=== PATIENT | female | born 1990 | race Caucasian/White ===

== ENCOUNTER 2017-05-01 23:38 | Emergency (ER) | payer SELFPAY ==
[~2017-05-01] VITALS: Ht 162.6 cm; Wt 64.0 kg
[~2017-05-01 23:38] MED LIST: FERR-55 PO; FOLI0.4T2 PO; PREN1TAB49 PO
[2017-05-01 23:49] VITALS: Ht 162.6 cm; Wt 64.0 kg
[2017-05-02] MEDS ORDERED: LORAZEPAM 1 MG TAB PO STA (00:02)
--- NOTE | 2017-05-02 00:37 | RADRPT ---
PROCEDURE: CHEST - 1 VIEW CLINICAL INDICATION: 26-year-old female with shortness of breath. TECHNIQUE: A single frontal AP upright portable view of the chest was performed. The images were reviewed on a PACS workstation. COMPARISON: None. FINDINGS: The cardiomediastinal silhouette has a normal appearance. There is no evidence for an infiltrate. T he pulmonary vascularity is within normal limits. There is no evidence for pneumothorax or pneumomed iastinum. The osseous structures are intact. IMPRESSION: No evidence for active cardiopulmonary disease. .Anjum Solo MD, MD Date Time Electronically viewed and signed by .Anjum Solo MD, on 05/02/2017 00:37 .M/
--- NOTE | 2017-05-02 00:56 | ERD ---
ER Documentation Chief Complaint Date/Time DATE: 05/02/17 TIME: 00:53 Chief Complaint tingling of lips, left arm , sob HPI This is a 26-year-old female with a history of asthma presenting to the emergency department complaining of tingling of the lips, numbness and tingling in bilateral arms and shortness of breath that started about 2 hours prior to being seen. Patient states that she started having shortness of breath and use her inhaler which did not give her any relief. She states that this shortness of breath was very different from her asthma symptoms. Patient states that it has gotten a little better however she still has some of the symptoms. She denies any history of anxiety. Denies any chest pain. States that she has not taken drugs ROS All systems reviewed and are negative except as per history of present illness. Medications Home Meds Reported Medications Ferrous Sulfate* (Ferrous Sulfate*) 325 Mg Tablet, 325 MG PO DAILY 11/26/12 Folic Acid* (Folic Acid*) 0.4 Mg Tablet, 0.4 MG PO DAILY 11/26/12 Vits W-Ca,Fe,Fa(<1MG) () 1 Tab Tablet, 1 TAB PO DAILY 11/26/12 Allergies Allergies: Coded Allergies: No Known Allergies (Verified Allergy, 10/13/12) PMhx/Soc Medical and Surgical Hx: pt denies Surgical Hx History of Surgery: Yes (Breast reduction) Anesthesia Reaction: No Hx Neurological Disorder: No Hx Respiratory Disorders: Yes (Asthma) Hx Cardiac Disorders: No Hx Psychiatric Problems: No Hx Miscellaneous Medical Probl: No Hx Alcohol Use: No Hx Substance Use: No Hx Tobacco Use: No Smoking Status: Never smoker Physical Exam Vitals Vital Signs Date Time Temp Pulse Resp B/P Pulse Ox O2 Delivery O2 Flow Rate FiO2 05/01/17 23:49 97.7 91 20 137/87 100 Physical Exam GENERAL: no acute distress, non-toxic appearing, sitting up in bed HENT: normocephalic/atraumatic EYES: conjunctiva is normal NECK: no noticeable or palpable swelling, no carotid bruits, no JVD CARDIOVASCULAR: RRR, good S1S2, no murmurs or gallops heard PULM: clear to auscultation, no use of accessory muscles, no crackles or wheezes. ABDOMEN: normal bowel sounds, abdomen soft and nontender EXT: no edema, cyanosis or clubbing MUSCULOSKELETAL: 5/5 strength, normal range of motion, no swollen or erythematous joints. NEURO: alert and oriented SKIN: no rashes, skin warm and dry, no erythematous areas PSYCH: normal mood and mentation, denies suicidal or homicidal ideation and thoughts Results 24 hrs Current Medications Medications (Trade) Dose Ordered Sig/Cody Route PRN Reason Start Time Stop Time Status Last Admin Dose Admin Lorazepam (Ativan) 1 mg ONCE STAT PO 05/02/17 00:02 05/02/17 00:06 DC 05/02/17 00:37 Procedures/MDM This is a 26-year-old female with history of asthma presenting to the emergency department complaining of tingling of the lips, shortness of breath and numbness and tingling in her arms for the past couple hours which is likely due to an anxiety attack. Patient appeared well, she had lungs are clear to auscultation bilaterally. Her pulse ox is 100%. There was no evidence of asthma exacerbation, pneumonia, ACS. Patient has normal neurological exam. An EKG was done in the ED did not show any evidence of STEMI. Chest x-ray did not show any evidence of infiltrates pneumothorax or pleural effusion. Patient was given Ativan in the ED and her symptoms have resolved. Patient stable to be discharged home to follow-up with primary care physician. Discussed return to the ER for any worsening symptoms patient understands and agrees with the plan. EKG: read and signed off by myself and Rate/Rhythm: [Normal Sinus Rhythm 80 bpm] QRS, ST, T-waves: [No changes consistent w/ acute ischemia] Impression: [No evidence of ischemia or arrhythmia] Departure Diagnosis: Primary Impression: Numbness and tingling sensation of skin Additional Impression: Shortness of breath Condition: Stable Patient Instructions: Coping with Shortness of Breath: Controlling Stress, Numbness Additional Instructions: FOLLOW UP WITH YOUR PRIMARY CARE PHYSICIAN TOMORROW.Return to this facility if you are not improving as expected. Take all medicines as directed. Return to this facility if you are not improving as expected. YAMILETH DE LA CRUZ PA-C May 02, 2017 00:56
== END 2017-05-02 01:17 | disposition home or self-care (01) ==
LOC: FTE 23:38
DX: R20.2 Paresthesia of skin (principal); R20.0 Anesthesia of skin; R06.02 Shortness of breath; J45.901 Unspecified asthma with (acute) exacerbation
CPT/HCPCS: 71010; 93005